=== PATIENT | male | born 1955 | race Caucasian/White ===

== ENCOUNTER → 2022-03-04 10:59 | Outpatient (CLI) | payer OTHER, SELFPAY ==
--- NOTE | ~2022-03-04 | XR_ITS ---
XR chest 2V DATE: 03/04/2022 11:12 INDICATION: Cough for 4 months. Chronic sinusitis. TECHNIQUE: 2 views COMPARISON: None FINDINGS: Borderline heart size. Mild atelectasis is suggested at the lung bases, primarily on the left. No pulmonary consolidation, p leural effusion, pulmonary vascular congestion or pneumothorax is noted. Osteopenia. IMPRESSION: Borderline heart size Mild atelectasis is suggested at the lung bases, primarily on the left Reviewed, dictated and finalized at location A. OPERATOR
== END ==
PROVIDERS: PCP Emergency Medicine; Visit Provider Emergency Medicine
DX: J32.9 Chronic sinusitis, unspecified (principal); J98.11 Atelectasis
CPT/HCPCS: 71046